=== PATIENT | male | born 1965 | race Caucasian/White ===

== ENCOUNTER 2017-07-05 09:18 | Day surgery (SDC) | payer OTHER ==
[~2017-07-05 09:18] MED LIST: Buffered Lidocaine 0.9% SYRIN* 5 ML/SYR SYRINGE INTRADERM ONE; Famotidine IV* 10 MG/ML 2 ML (20 mg) IV ONE
[2017-07-05] MEDS ORDERED: Famotidine TAB* 20 MG ONE (09:45)
[2017-07-05] MEDS ORDERED: ceFAZolin 2 GM PREMIX (*) 2 GM/50 ML BAG IVPB ONE (09:45)
[2017-07-05] MEDS ORDERED: Buffered Lidocaine 0.9% SYRIN* 5 ML/SYR SYRINGE ONE (09:45)
[2017-07-05] MEDS ORDERED: Bupivacaine 0.25% SDV* 30 ML ONE (11:19)
[2017-07-05] MEDS ORDERED: Lidocaine 2% PF* 10 ML AMP ONE (11:19)
[2017-07-05] MEDS ORDERED: fentaNYL* 50 MCG/ML 2 ML VIAL (100 MCG VIAL) ONE (11:36)
[2017-07-05] MEDS ORDERED: Midazolam* 1 MG/ML 5 ML VIAL (5 MG) ONE (11:36)
[2017-07-05] MEDS ORDERED: Lidocaine 2% PF * 5 ML VIAL ONE (11:38)
[2017-07-05] MEDS ORDERED: Propofol* 10 MG/ML 20 ML BTL IV PUSH ONE (11:38)
[2017-07-05] MEDS ORDERED: PROCHLORPERAZINE INJ 5 MG/ML 2 ML VIAL IV PRN (11:44)
[2017-07-05] MEDS ORDERED: HYDROcodone/ACETAMIN 5-325 MG* 1 TAB PO PRN (11:44)
[2017-07-05] MEDS ORDERED: fentaNYL* 50 MCG/ML 2 ML VIAL (100 MCG VIAL) IV PRN (11:44)
[2017-07-05] MEDS ORDERED: oxyCODONE/Acetamin 5/325 MG* TAB PO PRN (11:44)
[2017-07-05] MEDS ORDERED: Naloxone* 0.4 MG/ML 1 ML VIAL IV PRN (11:44)
[2017-07-05] MEDS ORDERED: Ketorolac INJ* 30 MG/ML 1 ML VIAL ONE (12:09)
[2017-07-05] MEDS ORDERED: Ondansetron INJ* 2 MG/ML VIAL ONE (12:26)
[2017-07-05 13:27] VITALS: BP 120/86
--- NOTE | 2017-07-14 22:20 | OP ---
DATE OF OPERATION: 07/05/17 - [facility] DATE OF : 63 SURGEON: Ismael Vuong MD PRE-OP DIAGNOSIS: Soft tissue mass, left lateral mid foot. POST-OP DIAGNOSIS: Soft tissue mass, left lateral mid foot. OPERATIVE PROCEDURE: Excisional biopsy of left foot mass. DESCRIPTION OF PROCEDURE: The patient was taken to the operating room where local anesthetic was instilled around his left lateral hindfoot. We made a 5 cm longitudinal incision over the mass, which was located medially subcutaneously. This was a well encapsulated mass probably 3 cm in diameter roughly round and without any extension into the surrounding soft tissue. It was not fluid filled. This was removed in its entirety and sent to pathology. Local hemostasis was obtained, irrigated and closed with Vicryl and nylon sutures, and a compression dressing applied. [id number] #: [id number] MTDD
== END 2017-07-05 13:45 | disposition home or self-care (01) ==
LOC: OR 09:18
PROVIDERS: ATTEND Orthopaedic Surgery
DX: D36.13 Benign neoplasm of peripheral nerves and autonomic nervous system of lower limb, including hip (principal); R22.42 Localized swelling, mass and lump, left lower limb; E11.9 Type 2 diabetes mellitus without complications; J45.909 Unspecified asthma, uncomplicated; K21.9 Gastro-esophageal reflux disease without esophagitis
CPT/HCPCS: 88305; 88342; A9270-GY; J0690; J1885; J2001; J2250; J2405; J2704; J3010